=== PATIENT | female | born 1975 | race Caucasian/White ===

== ENCOUNTER → 2016-09-16 | Outpatient (CLI) | payer BC | END | disposition home or self-care (01) | LOC: C.PAPS 10:41 | PROVIDERS: ATTEND Obstetrics & Gynecology | DX: Z01.419 Encounter for gynecological examination (general) (routine) without abnormal findings (principal) ==

== ENCOUNTER → 2016-12-21 | Outpatient (CLI) | payer BC ==
[~2016-12-21] MED LIST: ALPR-411 PO; ASPEC81 PO; CITA10TA8 PO
--- NOTE | 2016-12-21 16:06 | MAMMOGRAPHY REPORT ---
BILATERAL DIGITAL SCREENING MAMMOGRAM TOMOSYNTHESIS WITH CAD: 12/21/2016 CLINICAL HISTORY: Routine screening. Patient has no complaints. TECHNIQUE: Breast tomosynthesis in addition to standard 2D mammography was performed. Current study was also evaluated with a Computer Aided Detection (CAD) system. COMPARISON: Comparison is made to exams dated: 12/17/2015 mammogram, 01/02/2015 ultrasound, 01/02/2015 mammogram, 12/14/2014 mammogram, 09/06/2013 ultrasound, and 09/06/2013 mammogram - [facility]. BREAST COMPOSITION: The tissue of both breasts is heterogeneously dense, which may obscure small ma sses. FINDINGS: The parenchymal pattern is similar to prior exams. No developing mass, architectural dis tortion or cluster of suspicious microcalcifications is seen in either breast. IMPRESSION: ACR BI-RADS CATEGORY 2: BENIGN There is no mammographic evidence of malignancy. A 1 year screening mammogram is recommended. The p atient will receive written notification of the results. Approximately 10% of breast cancers are not detected with mammography. A negative mammographic repor t should not delay biopsy if a clinically suggestive mass is present. Opal Montgomery M.D. ay/:12/21/2016 16:02:48 Business Administration Teacher: Dimple VENTURA(R)(M), [facility] letter sent: Normal 1/2 BI-RADS Code: ACR BI-RADS Category 2: Benign
== END ==
LOC: C.MAMM 07:28
PROVIDERS: ATTEND Obstetrics & Gynecology
DX: Z12.31 Encounter for screening mammogram for malignant neoplasm of breast (principal)

== ENCOUNTER 2017-07-16 15:11 | Observation (INO) | payer BC ==
[~2017-07-16] VITALS: Ht 170.2 cm; Wt 80.3 kg
[2017-07-16] MEDS ORDERED: ALPR-411 PO (16:12)
[2017-07-16] MEDS ORDERED: CITA10TA8 PO (16:12)
[2017-07-16 16:18] LABS: BASO % 0.4 %; BASO ABS # 0.03 K/uL (0-0.2); COMPLETE YES; EOS % 1.6 %; HEMATOCRIT 39.6 % (37-47); IG% 0.1 %; LYMPH % 22.8 %; MEAN CORPUSCULAR HEMOGLOBIN 32.6 pg (25-34); MEAN CORPUSCULAR HGB CONC 34.3 g/dl (32-36); MEAN PLATELET VOLUME 10.9 fL (7.4-10.4); MONO % 8.5 %; NEUT % 66.6 %; PLATELET COUNT 180 K/uL (130-400); RED BLOOD COUNT 4.17 M/uL (4.2-5.4); WHITE BLOOD COUNT 7.45 K/uL (4.8-10.8)
[2017-07-16 16:26] LABS: PARTIAL THROMBOPLASTIN RATIO 1.2
[2017-07-16 16:27] LABS: POINT OF CARE TROPONIN I < 0.030 ng/ml (0-0.045)
[2017-07-16 16:44] LABS: BUN/CREATININE RATIO 16.4 (10-20); CALCIUM 8.5 mg/dl (8.5-10.1); CREATININE 0.69 mg/dl (0.60-1.20); POTASSIUM 4.2 mmol/L (3.5-5.1)
[2017-07-16] MEDS ORDERED: NITROGLYCERIN OINT 2% 1GM PACKET EXT ONE (17:00)
--- NOTE | 2017-07-16 17:38 | DIAGNOSTIC IMAGING REPORT ---
TWO VIEW CHEST CLINICAL HISTORY: Atypical chest pain. FINDINGS: PA and lateral chest radiographs are obtained. No prior studies are available for comparison at the time of dictation. The cardiomediastinal silhouette is unremarkable. The lungs and pleural spaces are clear. There is no pneumothorax. The bony thorax appears intact. IMPRESSION: No active disease in the chest. Electronically signed by: Denis Pedraza M.D. 07/16/2017 5:37 PM Dictated Date/Time: 07/16/2017 5:36 PM
[2017-07-16] MEDS ORDERED: ACETAMINOPHEN 325 MG TAB ONE (18:23)
[2017-07-16] MEDS ORDERED: ACETAMINOPHEN 325 MG TAB PO PRN (19:30)
[2017-07-16] MEDS ORDERED: ONDANSETRON INJ 2 MG/ML 2 ML VIAL IV PRN (19:30)
--- NOTE | 2017-07-16 19:38 | EMERGENCY ROOM VISIT NOTE ---
History Report prepared by Bryant: Reji Lerma Under the Supervision of: Dr. Tanmay Matthew M.D. First contact with patient: 15:45 Chief Complaint: SHORTNESS OF BREATH Stated Complaint: SOB, CHEST PRESSURE-NO PAIN JUST DISCOMFORT Nursing Triage Summary: patient states she has head "heavy like feeling" to mid chest since night. "its hard to take a deep breathe." patient states chest discomfort does not radiate History of Present Illness The patient is a 41 year old female who presents to the Emergency Room with complaints of constant upper chest heaviness starting two days ago, and she states that the severity waxes and wanes. She states that the pain started at night when she was sleeping. She states that the pain is on both sides, and it does not go into her neck, back, or arms. The patient additionally states that she is short of breath, and last night she was sweaty. She notes that nothing makes the pain any better or worse, and it is not worse at different times of the day. The patient denies any leg pain, leg swelling, fever, cough, and cold symptoms. The patient states that she does not smoke, she is not on control, she does not have a history of hypertension or diabetes, and she does not have a family history of heart disease. She states that she eats well and exercises. The patient has a history of anxiety, though she states that this is not related. Source of History: patient Onset: two days ago Position: chest Quality: other (heaviness) Timing: constant, waxes/wanes Associated Symptoms: + SOB, No fevers, No cough Note: Associated symptoms: sweaty Review of Systems See HPI for pertinent positives & negatives. A total of 10 systems reviewed and were otherwise negative. Past Medical & Surgical Medical Problems: (1) Anxiety (2) Chest pain Family History Patient reports no known family medical history. Social History Smoking Status: Never Smoker Alcohol Use: occasionally Marital Status: Housing Status: lives with family Occupation Status: employed Current/Historical Medications Scheduled Citalopram Hydrobromide (Celexa), 10 MG PO DAILY Scheduled PRN Alprazolam (Xanax), 0.5 MG PO BID PRN for Anxiety Allergies Coded Allergies: No Known Allergies (Verified , 09/28/02) Physical Exam Vital Signs Date Time Temp Pulse Resp B/P (MAP) Pulse Ox O2 Delivery O2 Flow Rate FiO2 07/16/17 19:01 53 20 110/70 96 Room Air 07/16/17 17:18 59 20 115/72 98 Room Air 07/16/17 16:17 58 07/16/17 16:13 Room Air 07/16/17 16:13 97 Room Air 07/16/17 15:28 99 Room Air 07/16/17 15:24 36.6 66 22 145/81 99 Room Air Physical Exam Constitutional: Vital signs reviewed. Eyes: Pupils are equal round reactive to light. Conjunctiva are noninjected. ENT: Pharynx is clear without erythema or exudate. Mucous membranes are moist. Neck supple without meningeal signs. Respiratory: Clear to auscultation bilaterally. Breath sounds are equal bilaterally. Cardiovascular: Regular rate and rhythm. No rubs or gallops. GI: Soft, nondistended and nontender. Bowel sounds are present. Musculoskeletal: No peripheral edema. No lower extremity tenderness. Integumentary: No cyanosis. Neurological: The patient is awake and alert. No focal deficits. Psychiatric: Normal affect. Medical Decision & Procedures ER Provider Diagnostic Interpretation: Radiology results as stated below per my review and the radiologist's interpretation: TWO VIEW CHEST CLINICAL HISTORY: Atypical chest pain. FINDINGS: PA and lateral chest radiographs are obtained. No prior studies are available for comparison at the time of dictation. The cardiomediastinal silhouette is unremarkable. The lungs and pleural spaces are clear. There is no pneumothorax. The bony thorax appears intact. IMPRESSION: No active disease in the chest. Electronically signed by: Denis Pedraza M.D. 07/16/2017 5:37 PM Dictated Date/Time: 07/16/2017 5:36 PM Laboratory Results 07/16/17 16:00 Red Blood Count 4.17, Mean Corpuscular Volume 95.0, Mean Corpuscular Hemoglobin 32.6, Mean Corpuscular Hemoglobin Concent 34.3, Mean Platelet Volume 10.9, Neutrophils (%) (Auto) 66.6, Lymphocytes (%) (Auto) 22.8, Monocytes (%) (Auto) 8.5, Eosinophils (%) (Auto) 1.6, Basophils (%) (Auto) 0.4, Neutrophils # (Auto) 4.96, Lymphocytes # (Auto) 1.70, Monocytes # (Auto) 0.63, Eosinophils # (Auto) 0.12, Basophils # (Auto) 0.03 07/16/17 16:00 Test 07/16/17 15:54 07/16/17 16:00 07/16/17 16:08 White Blood Count 7.45 K/uL (4.8-10.8) Red Blood Count 4.17 M/uL (4.2-5.4) Hemoglobin 13.6 g/dL (12.0-16.0) Hematocrit 39.6 % (37-47) Mean Corpuscular Volume 95.0 fL (80-100) Mean Corpuscular Hemoglobin 32.6 pg (25-34) Mean Corpuscular Hemoglobin Concent 34.3 g/dl (32-36) Platelet Count 180 K/uL (130-400) Mean Platelet Volume 10.9 fL (7.4-10.4) Neutrophils (%) (Auto) 66.6 % Lymphocytes (%) (Auto) 22.8 % Monocytes (%) (Auto) 8.5 % Eosinophils (%) (Auto) 1.6 % Basophils (%) (Auto) 0.4 % Neutrophils # (Auto) 4.96 K/uL (1.4-6.5) Lymphocytes # (Auto) 1.70 K/uL (1.2-3.4) Monocytes # (Auto) 0.63 K/uL (0.11-0.59) Eosinophils # (Auto) 0.12 K/uL (0-0.5) Basophils # (Auto) 0.03 K/uL (0-0.2) RDW Standard Deviation 42.8 fL (36.4-46.3) RDW Coefficient of Variation 12.3 % (11.5-14.5) Immature Granulocyte % (Auto) 0.1 % Immature Granulocyte # (Auto) 0.01 K/uL (0.00-0.02) Prothrombin Time 11.0 SECONDS (9.0-12.0) Prothromb Time International Ratio 1.0 (0.9-1.1) Activated Partial Thromboplast Time 30.3 SECONDS (21.0-31.0) Partial Thromboplastin Ratio 1.2 Anion Gap 7.0 mmol/L (3-11) Est Creatinine Clear Calc Drug Dose 117.8 ml/min Estimated GFR () 124.4 Estimated GFR (Non- 107.4 BUN/Creatinine Ratio 16.4 (10-20) Calcium Level 8.5 mg/dl (8.5-10.1) Bedside D-Dimer 409 ng/mlFEU (0-450) Bedside Troponin I < 0.030 ng/ml (0-0.045) Laboratory results as reviewed by me. Medications Administered Medications (Trade) Dose Ordered Sig/Maryuri Route Start Time Stop Time Status Last Admin Dose Admin Nitroglycerin (Nitroglycerin 2% Oint) 0.5 inch NOW ONCE EXT 07/16/17 17:00 07/16/17 17:01 DC 07/16/17 17:17 0.5 INCH Acetaminophen (Tylenol Tab) 650 mg STK-MED ONCE .ROUTE 07/16/17 18:23 07/16/17 18:24 DC 07/16/17 18:23 650 MG ECG Indication: chest pain, SOB/dyspnea Rate (beats per minute): 59 Rhythm: sinus bradycardia Findings: PAC, no acute ischemic change ED Course 1545: The patient was evaluated in room C12. A complete history and physical exam was performed. 1650: I reevaluated the patient, and she was still having chest heaviness. She denies any chance of since her had a vasectomy. She agreed to getting Nitro after a discussion of possible side effects. 1700: Nitroglycerin 0.5inch EXT 1823: Tylenol Tab 650mg PO 1829: I reassessed the patient, and she is feeling better. She is willing to stay in the hospital for repeat enzymes. 1833: I discussed the patient's case with Elizabeth Quinn PA-C, and she is going to evaluated the patient for further evaluation. Medical Decision This is a 41-year-old female presents with chest discomfort. Differential diagnosis includes unstable angina, PR, pulmonary embolism, pneumonia, pleurisy , GERD, anxiety. I did perform a limited focused review of portions of the patient's old chart on the electronic medical record. The patient has had no recent pertinent visits to this hospital. I did evaluate the patient as noted above. IV access was established. 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 I did order and personally review the patient's 12-lead EKG and chest x-ray as described above. Her twelve -lead EKG did not show any evidence of acute ischemia. Chest x-ray is unremarkable. I did order and review the patient's blood work as noted in the electronic medical record. Troponin and d-dimer are both negative. I did treat patient with nitroglycerin paste. I did reassess the patient. Her chest pain is improved although she is not sure she can attribute this to the nitroglycerin. I did discuss the test results with the patient as well as her . I did discuss limitations of the workup done here in the emergency department. We did have a long discussion regarding her symptoms. After discussion was decided that patient would be hospitalized for repeat cardiac enzymes and further evaluation. I did discuss case with the hospitalist and caser shoe parts. Medication Reconcilliation Current Medication List: was personally reviewed by me Blood Pressure Screening Patient's blood pressure: Elevated blood pressure Blood pressure disposition: Referred to PCP Consults Time Called: 1827 Consulting Physician: Elizabeth Quinn PA-C Returned Call: [phone] I discussed the patient's case with Elizabeth Quinn PA-C, and she is going to evaluated the patient for further evaluation. Impression Primary Impression: Acute chest pain Scribe Attestation The scribe's documentation has been prepared under my direct and personally reviewed by me in its entirety. I confirm that the note above accurately reflects all work, treatment, procedures, and medical decision making performed by me. Departure Information Dispostion Being Evaluated By Hospitalist Referrals Rajani Huber D.O. (PCP) Patient Instructions My [facility]
[2017-07-16] MEDS ORDERED: ALPRAZOLAM 0.5 MG TAB PO PRN (19:45)
[2017-07-16] MEDS ORDERED: IV FLUIDS COMPLETED PRN (20:00)
[2017-07-16 20:30] VITALS: BP 130/85; PULSE 65; TEMP 36.4; O2SAT 96; Ht 170.2 cm; Wt 80.3 kg
--- NOTE | 2017-07-16 21:31 | History and Physical ---
History & Physical Date & Time of Service: Jul 16, 2017 at 21:24 Chief Complaint: Chest Pain Primary Care Physician: Rajani Huber D.O. History of Present Illness Source: patient This is a 41yo F with a PMH of anxiety who presents with chest discomfort x 2 days. Was awakened during the night with a feeling of pressure and burning in her central chest. Pain did not radiate down arms or up to neck and was not associated with diaphoresis, nausea or SOB. States that it has been constant ever since then with pain ranging from a 3/10 to 6/10 in severity. States that she has experienced chest discomfort with anxiety in the past and that this feeling is different and more severe. Went to PCP for evaluation of palpitations 1.5 years ago but work up was normal. Ntg paste did not alleviate pain in the ER. Denies any history of tobacco use, HTN, DM II, HLD or family history of heart disease. 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 Endorses a dull headache. Denies lightheadedness, syncopal events, visual changes, palpitations, SOB, abd pain, nausea, vomiting or LE swelling. Past Medical/Surgical History Medical Problems: (1) Anxiety Status: Chronic Family History Patient reports no known family medical history. Social History Smoking Status: Never Smoker Alcohol Use: socially (1-2 drinks/week. ) Marital Status: Housing status: lives with family Occupational Status: employed Multi-Drug Resistant Organisms History of MDRO: No Allergies Coded Allergies: No Known Allergies (Verified , 09/28/02) Home Medications Scheduled Citalopram Hydrobromide (Celexa), 10 MG PO DAILY Scheduled PRN Alprazolam (Xanax), 0.5 MG PO BID PRN for Anxiety Review of Systems Ten systems reviewed and negative except as noted in the HPI. Physical Exam Vital Signs Date Time Temp Pulse Resp B/P (MAP) Pulse Ox O2 Delivery O2 Flow Rate FiO2 07/16/17 20:30 36.4 65 18 130/85 96 Room Air 07/16/17 20:14 59 20 115/73 98 07/16/17 19:01 53 20 110/70 96 Room Air 07/16/17 17:18 59 20 115/72 98 Room Air 07/16/17 16:17 58 07/16/17 16:13 Room Air 07/16/17 16:13 97 Room Air 07/16/17 15:28 99 Room Air 07/16/17 15:24 36.6 66 22 145/81 99 Room Air General Appearance: WD/WN, no apparent distress Head: normocephalic, atraumatic Eyes: normal inspection, PERRL, sclerae normal ENT: normal ENT inspection, hearing grossly normal, pharynx normal (moist mucous membranes ) Neck: supple, no JVD, trachea midline Respiratory/Chest: chest non-tender, lungs clear, normal breath sounds, no respiratory distress, no accessory muscle use Cardiovascular: regular rate, rhythm, no murmur, normal peripheral pulses Abdomen/GI: non tender, soft, no organomegaly Back: normal inspection Extremities/Musculoskelatal: normal inspection, no calf tenderness, no pedal edema Neurologic/Psych: no motor/sensory deficits, alert, normal mood/affect, oriented x 3 Skin: normal color, warm/dry, + rash Diagnostics Laboratory Results Results Past 24 Hours Test 07/16/17 15:54 07/16/17 16:00 07/16/17 16:08 Range/Units White Blood Count 7.45 4.8-10.8 K/uL Red Blood Count 4.17 4.2-5.4 M/uL Hemoglobin 13.6 12.0-16.0 g/dL Hematocrit 39.6 37-47 % Mean Corpuscular Volume 95.0 80-100 fL Mean Corpuscular Hemoglobin 32.6 25-34 pg Mean Corpuscular Hemoglobin Concent 34.3 32-36 g/dl Platelet Count 180 130-400 K/uL Mean Platelet Volume 10.9 7.4-10.4 fL Neutrophils (%) (Auto) 66.6 % Lymphocytes (%) (Auto) 22.8 % Monocytes (%) (Auto) 8.5 % Eosinophils (%) (Auto) 1.6 % Basophils (%) (Auto) 0.4 % Neutrophils # (Auto) 4.96 1.4-6.5 K/uL Lymphocytes # (Auto) 1.70 1.2-3.4 K/uL Monocytes # (Auto) 0.63 0.11-0.59 K/uL Eosinophils # (Auto) 0.12 0-0.5 K/uL Basophils # (Auto) 0.03 0-0.2 K/uL RDW Standard Deviation 42.8 36.4-46.3 fL RDW Coefficient of Variation 12.3 11.5-14.5 % Immature Granulocyte % (Auto) 0.1 % Immature Granulocyte # (Auto) 0.01 0.00-0.02 K/uL Prothrombin Time 11.0 9.0-12.0 SECONDS Prothromb Time International Ratio 1.0 0.9-1.1 Activated Partial Thromboplast Time 30.3 21.0-31.0 SECONDS Partial Thromboplastin Ratio 1.2 Sodium Level 139 136-145 mmol/L Potassium Level 4.2 3.5-5.1 mmol/L Chloride Level 106 98-107 mmol/L Carbon Dioxide Level 26 21-32 mmol/L Anion Gap 7.0 3-11 mmol/L Blood Urea Nitrogen 11 7-18 mg/dl Creatinine 0.69 0.60-1.20 mg/dl Est Creatinine Clear Calc Drug Dose 117.8 ml/min Estimated GFR () 124.4 Estimated GFR (Non- 107.4 BUN/Creatinine Ratio 16.4 10-20 Random Glucose 94 70-99 mg/dl Calcium Level 8.5 8.5-10.1 mg/dl Bedside D-Dimer 409 0-450 ng/mlFEU Bedside Troponin I < 0.030 0-0.045 ng/ml CXR normal Normal EKG Impression Assessment and Plan This is a 41yo F with a PMH of anxiety who presents with chest discomfort x 2 days. Atypical chest pain: -CP for 2 days, mild-moderate intensity -Likely an anxiety component -No ACS risk factors -CXR, EKG, initial troponin negative -Trend cardiac enzymes -Evaluate for in-patient vs out-patient stress test in AM Anxiety: -Stable -Cont celexa and xanax PRN DVT Ppx: SCDs/Lovenox Code status: FULL PCP: [facility] Dispo: Plan to return home once medically stable Patient seen in collaboration with Dr. Francis. Please see addendum. ADDENDUM: I have seen and examined the patient and agree with the assessment and plan above. Doubt cardiac etiology for chest pain. Would likely benefit from outpatient stress test. Offered morphine for 3/10 chest discomfort currently and she declined. Denies any issues with GERD in the past. DO Tito Level of Care Telemetry Advanced Directives Existing Living Will: Yes Existing Power of Silk Screen Operator: Yes Resuscitation Status FULL RESUSCITATION VTE Prophylaxis VTE Risk Assessment Done? Y/N: Yes Risk Level: Low Given or contraindicated: SCD's
[2017-07-16] MEDS ORDERED: NITROGLYCERIN 0.4 MG SL PER TAB CHARGE SL PRN (21:45)
[2017-07-16] MEDS ORDERED: MoRPHine SULFATE 2 MG/ML CARP IV PRN (21:45)
[2017-07-16] MEDS ORDERED: ALUMINUM/MAGNESIUM SUSP 18 ML, LIDOCAINE HCL 2% VISCOUS SOLN 6 ML, BARCODE IDENTIFIER 1 EA PO PRN ×2 (21:45)
[2017-07-16] MEDS ORDERED: GI COCKTAIL PO PRN (21:45)
[2017-07-16] MEDS ORDERED: INFLUENZA ADMINISTRATION CHARGE ONE (23:45)
[2017-07-16] MEDS ORDERED: INFLUENZA VIRUS QUAD VACCINE 0.5 ML SYR IM. ONE (23:45)
[2017-07-16 23:46] VITALS: BP 121/70; PULSE 65; TEMP 37; O2SAT 96
[2017-07-17 03:49] VITALS: BP 120/75; PULSE 54; TEMP 36.8; O2SAT 96
[2017-07-17 06:22] LABS: HEMATOCRIT 40.4 % (37-47); MEAN CELL VOLUME 94.4 fL (80-100); MEAN CORPUSCULAR HEMOGLOBIN 31.3 pg (25-34); MEAN CORPUSCULAR HGB CONC 33.2 g/dl (32-36); MEAN PLATELET VOLUME 11.2 fL (7.4-10.4); PLATELET COUNT 171 K/uL (130-400); RED BLOOD COUNT 4.28 M/uL (4.2-5.4); WHITE BLOOD COUNT 5.37 K/uL (4.8-10.8)
[2017-07-17 06:50] LABS: BUN/CREATININE RATIO 14.2 (10-20); CALCIUM 8.6 mg/dl (8.5-10.1); CREATININE 0.67 mg/dl (0.60-1.20); POTASSIUM 3.7 mmol/L (3.5-5.1)
[2017-07-17 07:33] VITALS: BP 121/67; PULSE 58; TEMP 36.9; O2SAT 95
[2017-07-17] MEDS ORDERED: CITALOPRAM 20 MG TAB PO SCH (09:00)
[2017-07-17] MEDS ORDERED: ENOXAPARIN 40 MG/0.4 ML SYR SC SCH (09:00)
--- NOTE | 2017-07-17 10:01 | Discharge Instructions ---
Discharge Instructions Date of Service Jul 17, 2017. Admission Reason for Admission: Chest Pain Discharge Discharge Diagnosis / Problem: CHEST PAIN /ATYPICAL FOR ANGINA, NO EVIDENCE OF ACUTE CORONARY SYNDROME Discharge Goals Goal(s): Decrease discomfort, Increase independence, Improve disease control, Diagnostic testing Activity Recommendations Activity Limitations: resume your previous activity . Instructions / Follow-Up Instructions / Follow-Up HOSPITAL FOLLOW UP 07/22/2017 9:30 AM Rajani Huber DO [facility] WILL BENEFIT WITH OUT PATIENT CARDIAC STRESS TEST : Current Hospital Diet Patient's current hospital diet: AHA Diet (Heart Healthy) Discharge Diet Recommended Diet: AHA Diet (Heart Healthy) Pending Studies Studies pending at discharge: no Medical Emergencies . Who to Call and When: Medical Emergencies: If at any time you feel your situation is an emergency, please call 911 immediately. . Non-Emergent Contact Non-Emergency issues call your: Primary Care Provider . . "Provider Documentation" section prepared by Jayla Dorsey. . VTE Core Measure Inpt VTE Proph given/why not?: Enoxaparin (Lovenox)SQ
--- NOTE | 2017-07-17 10:04 | Discharge Summary ---
Discharge Summary Date of Service Jul 17, 2017. Discharge Summary Admission Date: Jul 16, 2017 at 19:29 Discharge Date: Jul 17, 2017 Discharge Disposition: Home Principal Diagnosis: CHEST PAIN /ATYPICAL FOR ANGINA, NO EVIDENCE OF ACUTE CORONARY SYNDROME Procedures: CHEST XRAY TWO VIEW CLINICAL HISTORY: Atypical chest pain. FINDINGS: PA and lateral chest radiographs are obtained. No prior studies are available for comparison at the time of dictation. The cardiomediastinal silhouette is unremarkable. The lungs and pleural spaces are clear. There is no pneumothorax. The bony thorax appears intact. IMPRESSION: No active disease in the chest. Medication Reconciliation New Medications: Aspirin (Aspirin EC Low Dose) 81 Mg Ectab 1 TAB PO DAILY for 30 Days, #30 TABS take with meals Continued Medications: Alprazolam (Xanax) 0.5 Mg Tab 0.5 MG PO BID PRN for Anxiety, TAB Citalopram Hydrobromide (Celexa) 10 Mg Tab 10 MG PO DAILY, TAB Referrals At Discharge Follow up Referrals: Physician Referral - 07/22/17 with Rajani Huber D.O. Admission Information HPI (per Admitting provider): This is a 41yo F with a PMH of anxiety who presents with chest discomfort x 2 days. Was awakened during the night with a feeling of pressure and burning in her central chest. Pain did not radiate down arms or up to neck and was not associated with diaphoresis, nausea or SOB. States that it has been constant ever since then with pain ranging from a 3/10 to 6/10 in severity. States that she has experienced chest discomfort with anxiety in the past and that this feeling is different and more severe. Went to PCP for evaluation of palpitations 1.5 years ago but work up was normal. Ntg paste did not alleviate pain in the ER. Denies any history of tobacco use, HTN, DM II, HLD or family history of heart disease. 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 Endorses a dull headache. Denies lightheadedness, syncopal events, visual changes, palpitations, SOB, abd pain, nausea, vomiting or LE swelling. Physical Exam (per Admitting): General Appearance: WD/WN, no apparent distress Head: normocephalic, atraumatic Eyes: normal inspection, PERRL, sclerae normal ENT: normal ENT inspection, hearing grossly normal, pharynx normal (moist mucous membranes ) Neck: supple, no JVD, trachea midline Respiratory/Chest: chest non-tender, lungs clear, normal breath sounds, no respiratory distress, no accessory muscle use Cardiovascular: regular rate, rhythm, no murmur, normal peripheral pulses Abdomen/GI: non tender, soft, no organomegaly Back: normal inspection Extremities/Musculoskelatal: normal inspection, no calf tenderness, no pedal edema Neurologic/Psych: no motor/sensory deficits, alert, normal mood/affect, oriented x 3 Skin: normal color, warm/dry, + rash Hospital Course Atypical chest pain: -CP for 2 days, mild-moderate intensity -Likely an anxiety component -no risk factor for coronary heart disease -no family hx of CAD , non smoker,no HTN or hyperlipidema -CXR, EKG, troponin negative X3 symptom has resolved, wants to be discharged home hospital follow up arranged with Family physician Dr Huber in A week pt is asked to take low dose aspirin for primary prevention out-patient stress test -if the cardiac stress test negative, pt can discuss with her family physician regarding discontinuing Aspirin Anxiety: -Stable; no panic attack -Cont celexa and xanax PRN DVT Ppx: SCDs/Lovenox Code status: FULL PCP: [facility] Dispo: Discharge home today PHYSICAL EXAM : GEN ; no evidence of discomfort, awake and alert, conversing HEENT : sclera non icteric, PERRLA/EOMI LUNGS: CTA , no wheeze or rales HEART : regular S1/s2 ABDOMEN: soft, non tender , bowel sound active EXTREMITY : no lower ext edema , no calf tenderness NEURO: AAO x3, no focal deficit Discharge Instructions Discharge Instructions Date of Service Jul 17, 2017. Admission Reason for Admission: Chest Pain Discharge Discharge Diagnosis / Problem: CHEST PAIN /ATYPICAL FOR ANGINA, NO EVIDENCE OF ACUTE CORONARY SYNDROME Discharge Goals Goal(s): Decrease discomfort, Increase independence, Improve disease control, Diagnostic testing Activity Recommendations Activity Limitations: resume your previous activity . Instructions / Follow-Up Instructions / Follow-Up HOSPITAL FOLLOW UP 07/22/2017 9:30 AM Rajani Huber DO [facility] WILL BENEFIT WITH OUT PATIENT CARDIAC STRESS TEST : Current Hospital Diet Patient's current hospital diet: AHA Diet (Heart Healthy) Discharge Diet Recommended Diet: AHA Diet (Heart Healthy) Pending Studies Studies pending at discharge: no Medical Emergencies . Who to Call and When: Medical Emergencies: If at any time you feel your situation is an emergency, please call 911 immediately. . Non-Emergent Contact Non-Emergency issues call your: Primary Care Provider . . "Provider Documentation" section prepared by Jayla Dorsey. . VTE Core Measure Inpt VTE Proph given/why not?: Enoxaparin (Lovenox)SQ Additional Copies To Rajani Huber D.O.
[2017-07-17 11:31] VITALS: BP 112/74; PULSE 62; TEMP 36.9; O2SAT 96
[2017-07-17] MEDS ORDERED: ASPEC81 PO (11:46)
[2017-07-17 11:52] VITALS: BP 112/74; PULSE 62; TEMP 36.9; O2SAT 96
== END 2017-07-17 11:55 | disposition home or self-care (01) ==
LOC: C.EDB 15:12 → C.2E 19:29 → ENRESERV 19:39
PROVIDERS: ADMIT Hospitalist; ATTEND Hospitalist
DX: R07.89 Other chest pain (principal); R06.02 Shortness of breath; R51 Headache; Z87.891 Personal history of nicotine dependence